=== PATIENT | male | born 1995 | race Caucasian/White ===

== ENCOUNTER 2016-10-28 13:45 | Outpatient (CLI) ==
[2016-01-07 07:58] VITALS: BMI 58.3
[2016-10-28 14:13] LABS: BASOPHILS # (AUTO) 0.1 K/uL (0-0.2); BASOPHILS % (AUTO) 0.4 % (0.0-3.0); EOSINOPHILS # (AUTO) 0.3 K/ul (0.0-0.7); EOSINOPHILS % (AUTO) 2.3 % (0.0-7.0); HEMATOCRIT 44.9 % (42.0-52.0); HEMOGLOBIN 14.5 g/dl (14.0-18.0); IMMATURE GRANULOCYTE % (AUTO) 0.3 % (0.0-5.0); LYMPHOCYTES % (AUTO) 32.5 (10.0-50.0); MEAN CORPUSCULAR HEMOGLOBIN 27.7 pg (27.0-31.0); MEAN CORPUSCULAR HGB CONC 32.3 (31.8-35.4); MEAN CORPUSCULAR VOLUME 85.7 fl (80.0-94.0); MONOCYTES # (AUTO) 0.7 K/uL (0.4-2.0); MONOCYTES % (AUTO) 5.4 (0-10); NEUTROPHILS # (AUTO) 7.2 K/ul (2.0-6.9); NEUTROPHILS % (AUTO) 59.1; PLATELET COUNT 330 10^3/uL (140-440); RED BLOOD COUNT 5.24 10^6/ul (4.70-6.10); WHITE BLOOD COUNT 12.17 K/ul (4.2-10.2)
[2016-10-28 15:27] LABS: ALBUMIN 3.5 g/dL (3.4-5.0); ALBUMIN/GLOBULIN RATIO 0.85; BILIRUBIN,TOTAL 0.49 mg/dL (0.00-1.20); BUN/CREATININE RATIO 20.45; CREATININE 0.88 mg/dL (0.60-1.10); TOTAL PROTEIN 7.6 g/dL (6.4-8.2)
== END 2016-10-28 13:46 | disposition home or self-care (01) ==
LOC: EDSEX → LAB 13:45
PROVIDERS: ATTEND Nurse Practitioner Family
DX: M54.10 Radiculopathy, site unspecified (principal); E66.01 Morbid (severe) obesity due to excess calories
CPT/HCPCS: 36415; 80053; 80061; 84443; 85025

== ENCOUNTER 2016-10-29 09:11 | Outpatient (CLI) ==
[2016-01-07 07:58] VITALS: BMI 58.3
[2016-10-29 09:58] LABS: BILIRUBIN,URINE Negative (NEGATIVE); KETONES,URINE Negative (NEGATIVE); LEUKOCYTE ESTERASE ,URINE Trace (NEGATIVE); NITRITE,URINE Negative (NEGATIVE); PROTEIN,URINE Negative (NEGATIVE); URINE, BLOOD 1+ (NEGATIVE)
[2016-10-29 10:04] LABS: ADD URINE MICROSCOPIC YES
[2016-10-29 10:09] LABS: BACTERIA,URINE 1+ (NOT PRESENT)
--- NOTE | 2016-10-29 10:10 | CT ---
EXAM: CT lumbar spine with contrast HISTORY: Radiculopathy. COMPARISON: None TECHNIQUE: Serial axial images of the lumbar spine were obtained after the administration 75 ml of Omnipaque 350 IV contrast. These were viewed in multiple planes. Evaluation is limited due to patie nt motion. FINDINGS: This evaluate is limited due to patient motion. The vertebral bodies demonstrate normal h eight, disc space and alignment. No lytic or blastic lesion is identified. No compression fracture or subluxation is identified. L1-L2: Normal L2-L3: Normal L3-L4: Small broad-based disc bulge with minimal right neural foraminal narrowing. L4-L5: Small disc bulge with minimal bilateral neural foraminal narrowing. L5-S1: Disc bulge with minimal osteophyte with mild to moderate right neural foraminal narrowing. The soft tissues are unremarkable. IMPRESSION: 1. No acute compression fracture or subluxation. 2. Disc bulge contributes to mild to moderate right neural foraminal narrowing noted at L5-S1. Oth er levels as described above. If further evaluation is clinically indicated, MRI may be obtained.
== END 2016-10-29 09:12 | disposition home or self-care (01) ==
LOC: EDSEX 09:11 → RAD 09:11
PROVIDERS: ATTEND Nurse Practitioner Family
DX: M54.10 Radiculopathy, site unspecified (principal); Z91.81 History of falling; D72.829 Elevated white blood cell count, unspecified
CPT/HCPCS: 81001; 87086

== ENCOUNTER 2016-11-17 16:47 | Emergency (ER) ==
[2016-11-17 17:02] VITALS: BP 138/96; BMI 72.8
--- NOTE | 2016-11-17 17:24 | ED.PDOC ---
General ED Provider: Dr. SHANAE HANCOCK JR Chief Complaint: Chest Pain Stated Complaint: seeing clinic back pain approx 8 weeks.same time chest pain aching left side of chest.no radiation, short of breath on occassion. at clinic pulse 140 120 resting pain short duration whole body was hurting[End] sore throat yesterday nasal congestion [id number] 123 20 98% 138/96 4/10; staes heat rate has been elevated past four times she has been in highest today UTI 2 weeks ago Time Seen by Physician: 17:25 Mode of Arrival: Walk-In Information Source: Patient Exam Limitations: No limitations Primary Care Provider: DWIGHT NOVOA Nursing and Triage Documentation Reviewed and Agree: No Review of Systems - Review Of Systems Constitutional: Reports: Fever, Malaise Eyes: Reports: No symptoms Ears, Nose, Mouth, Throat: Reports: No symptoms Respiratory: Reports: No symptoms Cardiac: Reports: Chest pain GI: Reports: No symptoms : Reports: No symptoms Musculoskeletal: Reports: No symptoms Skin: Reports: No symptoms Neurological: Reports: No symptoms Endocrine: Reports: Other (increased hirsuitism) Hematologic/Lymphatic: Reports: No symptoms All Other Systems: Other Past Medical History - Past Medical History Previously Healthy: No Endocrine: Reports: None Cardiovascular: Reports: None Respiratory: Reports: None Hematological: Reports: None Gastrointestinal: Reports: None Genitourinary: Reports: UTI Neuro/Psych: Reports: None Musculoskeletal: Reports: Other (3 bulging disks) Cancer: Reports: None Last Menstrual Period: 08/13 Other Pertinent Past Medical History: obesity - Surgical History General Surgical History: Reports: Tonsillectomy, Orthopedic (plates and screws right forearm and wrist post fall ) - Family History Family History: Reports: Diabetes (both parents) - Social History Smoking Status: Never smoker Hx Substance Use: No Alcohol Screening: None Physical Exam - Physical Exam Appearance: Ill-appearing, Obese Ill-appearing: Mild Pain Distress: Mild Eyes: NATHANIEL, EOMI, Conjunctiva clear ENT: Ears normal, Nose normal, Oropharynx normal Neck: Supple Respiratory: Airway patent Cardiovascular: RRR, Pulses normal, No rub, No murmur, Tachycardia GI/: Soft, Nontender, No masses, Bowel sounds normal, No Organomegaly Musculoskeletal: Normal strength, ROM intact, No edema, No calf tenderness Skin: Warm, Dry, Normal color Neurological: Sensation intact, Motor intact, Reflexes intact, Cranial nerves intact, Alert, Oriented Psychiatric: Affect appropriate, Mood appropriate, Anxious Interpretation - Radiology Interpretation Radiology Interpretation By: ED Physician Radiology Results: Negative Exam Interpreted: CXR - EKG Interpretation Time of EKG #1: 17:30 Rate: Tachy Rhythm: Sinus Ectopy: None Hallam: NL ST Segment: Normal Critical Care Note - Critical Care Note Total Time (mins): 0 Course - Course Hematology/Chemistry: 11/17/16 17:28 11/17/16 17:28 Orders, Labs, Meds: Lab Review 11/17/16 11/17/16 17:18 17:28 WBC 8.87 RBC 5.00 Hgb 13.9 Hct 42.1 MCV 84.2 MCH 27.8 MCHC 33.0 RDW Coeff of Castillo 13.2 Plt Count 355 Immature Gran % (Auto) 0.6 Neut % (Auto) 65.5 Lymph % (Auto) 25.8 Anson % (Auto) 6.0 Eos % (Auto) 1.8 Baso % (Auto) 0.3 Immature Gran # (Auto) 0.1 Neut # 5.8 Lymph # 2.3 Anson # 0.5 Eos # 0.2 Baso # 0.0 D-Dimer 0.50 Sodium 143 Potassium 4.1 Chloride 109 H Carbon Dioxide 24 Anion Gap 14.1 BUN 14 Creatinine 0.88 Estimated GFR (MDRD) 82.00 BUN/Creatinine Ratio 15.90 Glucose 103 Calcium 9.5 Total Bilirubin 0.23 AST 22 ALT 39 Alkaline Phosphatase 59 Total Creatine Kinase 43 Troponin I < 0.0100 B-Natriuretic Peptide < 10 Total Protein 7.8 Albumin 3.7 Globulin 4.1 Albumin/Globulin Ratio 0.90 Procalcitonin < 0.05 Urine Color Yellow Urine Clarity Turbid Urine pH 5.5 Ur Specific Branch 1.025 Urine Protein 1+ Urine Glucose (UA) Negative Urine Ketones Negative Urine Blood 3+ Urine Nitrite Negative Urine Bilirubin Negative Urine Urobilinogen 0.2 Ur Leukocyte Esterase Negative Urine Microscopic RBC 10-20 Ur Squamous Epith Cells 5-10 Urine Bacteria 1+ Urine Mucus 2+ Influenza A (Rapid) Negative Influenza B (Rapid) Negative Orders Category Date Time Status EKG-(ED ONLY) Stat CARDIO 11/17/16 17:10 Completed ED NETWORK COMMUNICATIONS ENGINEER APPLIED .ONCE EMERGENCY 11/17/16 17:10 Active B-TYPE NATRIURETIC PEPTIDE Stat LAB 11/17/16 17:28 Completed BLOOD CULTURE Stat LAB 11/17/16 17:28 Received CBC W/ AUTO DIFF Stat LAB 11/17/16 17:28 Completed COMPREHENSIVE METABOLIC PANEL Stat LAB 11/17/16 17:28 Completed CREATINE KINASE Stat LAB 11/17/16 17:28 Completed D-DIMER Stat LAB 11/17/16 17:28 Completed MOLECULAR GROUP A STREP Stat LAB 11/17/16 17:18 Results PROCALCITONIN Stat LAB 11/17/16 17:28 Completed RAPID FLU A/B Stat LAB 11/17/16 17:18 Completed STREP SCREEN Stat LAB 11/17/16 17:18 Results TROPONIN I Stat LAB 11/17/16 17:28 Completed UA [URINALYSIS C & S IF INDICATED] Stat LAB 11/17/16 17:18 Completed URINE CULTURE Routine LAB 11/17/16 17:18 Received Acetaminophen [Tylenol] MEDS 11/17/16 17:28 Discontinued 650 mg PO ONCE STA CHEST, 2 VIEWS PA & LAT Stat RADS 11/17/16 17:12 Taken Medications Discontinued Medications Generic Name Dose Route Start Last Admin Trade Name Freq PRN Reason Stop Dose Admin Acetaminophen 650 mg 11/17/16 17:28 11/17/16 17:42 Tylenol PO 11/17/16 17:29 650 mg ONCE STA Administration Vital Signs: Temp Pulse Resp BP Pulse Ox 11/17/16 16:48 100.5 F H 123 H 20 138/96 H 98 KHADIJAH Risk Score KHADIJAH Risk Score: Risk Score Odds of by 30D 0 0.1 (0.1-0.2) 1 0.3 (0.2-0.3) 2 0.4 (0.3-0.5) 3 0.7 (0.6-0.9) 4 1.2 (1.0-1.5) 5 2.2 (1.9-2.6) 6 3.0 (2.5-3.6) 7 4.8 (3.8-6.1) Departure - Departure Time of Disposition: 18:16 Disposition: HOME SELF-CARE Discharge Problem: Tachycardia determined by examination of pulse UTI (urinary tract infection) Qualifiers: Urinary tract infection type: site unspecified Hematuria presence: with hematuria Qualifier Code: (N39.0) Urinary tract infection, site not specified Instructions: Urinary Tract Infection in Women (ED) Condition: Fair Pt referred to PMD for follow-up: Yes Additional Instructions: antibiotics until gone bactrim DS for 7 days recheck heart rate after 2 days of antibiotics may call PMD after 36 hours for culture results no evidence of cardiac cause for tachycardia tachycardia that does not resolve with control of fever may be ralated to hormones consider obtaining urinary metanephrines Hirsuitism may be related to hormone imbalances such as polycystic ovaries consider glucophage if polycystic ovaries are present antibiotic for urine infection Prescriptions: Sulfamethoxazole/Trimethoprim [Bactrim Ds 800/160 mg] 1 tab PO Q12HR #14 tablet Allergies/Adverse Reactions: Allergies No Known Allergies Allergy (Verified 11/17/16 17:02) Home Medications: Ambulatory Orders Sulfamethoxazole/Trimethoprim [Bactrim Ds 800/160 mg] 1 tab PO Q12HR #14 tablet 11/17/16
[2016-11-17] MEDS ORDERED: TYLENOL PO STA (17:28)
[2016-11-17 17:36] LABS: BASOPHILS % (AUTO) 0.3 % (0.0-3.0); EOSINOPHILS # (AUTO) 0.2 K/ul (0.0-0.7); EOSINOPHILS % (AUTO) 1.8 % (0.0-7.0); HEMATOCRIT 42.1 % (37.0-47.0); HEMOGLOBIN 13.9 g/dl (12.0-16.0); IMMATURE GRANULOCYTE % (AUTO) 0.6 % (0.0-5.0); LYMPHOCYTES # (AUTO) 2.3 K/uL (0.60-3.4); LYMPHOCYTES % (AUTO) 25.8 (10.0-50.0); MEAN CORPUSCULAR HEMOGLOBIN 27.8 pg (27.0-31.0); MEAN CORPUSCULAR VOLUME 84.2 fl (81.0-99.0); MONOCYTES # (AUTO) 0.5 K/uL (0.4-2.0); NEUTROPHILS # (AUTO) 5.8 K/ul (2.0-6.9); NEUTROPHILS % (AUTO) 65.5; PLATELET COUNT 355 10^3/uL (140-440); WHITE BLOOD COUNT 8.87 K/ul (4.6-10.2)
[2016-11-17 17:49] LABS: BILIRUBIN,URINE Negative (NEGATIVE); KETONES,URINE Negative (NEGATIVE); LEUKOCYTE ESTERASE ,URINE Negative (NEGATIVE); NITRITE,URINE Negative (NEGATIVE); PH,URINE 5.5 (5-9); PROTEIN,URINE 1+ (NEGATIVE); URINE, BLOOD 3+ (NEGATIVE)
[2016-11-17 17:51] LABS: FLU INTERNAL QC INTERNAL QC VALID; RAPID FLU A NEGATIVE (NEGATIVE); RAPID FLU B NEGATIVE (NEGATIVE)
[2016-11-17 17:53] LABS: ADD URINE MICROSCOPIC YES
[2016-11-17 17:54] LABS: BACTERIA,URINE 1+ (NOT PRESENT)
[2016-11-17 18:03] LABS: ALANINE AMINOTRANSFERASE 39 U/L (12-78); ALBUMIN 3.7 g/dL (3.4-5.0); ALKALINE PHOSPHATASE 59 U/L (42-98); ANION GAP 14.1; ASPARTATE AMINO TRANSFERASE 22 U/L (15-37); BILIRUBIN,TOTAL 0.23 mg/dL (0.00-1.20); BLOOD UREA NITROGEN 14 mg/dL (7-18); CALCIUM 9.5 mg/dL (8.2-10.2); CARBON DIOXIDE 24 mmol/L (21-32); CHLORIDE 109 mmol/L (98-107); CREATINE KINASE 43 U/L; CREATININE 0.88 mg/dL (0.60-1.30); GLUCOSE 103 mg/dL (70-110); POTASSIUM 4.1 mmol/L (3.5-5.10); SODIUM 143 mmol/L (136-145); TOTAL PROTEIN 7.8 g/dL (6.4-8.2)
[2016-11-17 18:42] VITALS: TEMP 100.8
[2016-11-17] MEDS ORDERED: BACTRIM DS 800/160 MG PO STA (18:56)
--- NOTE | 2016-11-18 07:19 | DI ---
EXAM: Two views of the chest. History: Fever. Findings: Borderline cardiomegaly. No focal consolidation. No appreciable pleural fluid and no pn eumothorax. No acute osseous abnormalities. Impression: No acute cardiopulmonary process. Borderline cardiomegaly.
== END 2016-11-17 19:05 | disposition home or self-care (01) ==
LOC: ED 16:47
DX: R00.0 Tachycardia, unspecified (principal); N39.0 Urinary tract infection, site not specified; R07.9 Chest pain, unspecified; L68.0 Hirsutism
CPT/HCPCS: 36415; 80053; 81001; 82550; 83880; 84145; 84484; 85025; 85379; 87040; 87086; 87651; 87804; 87880; 93005; 93010; 99283

== ENCOUNTER 2016-11-18 16:22 | Outpatient (CLI) ==
[2016-11-17 17:02] VITALS: BMI 72.8
== END 2016-11-18 16:23 | disposition home or self-care (01) ==
LOC: LAB 16:22
PROVIDERS: ATTEND Nurse Practitioner Family
DX: I51.7 Cardiomegaly (principal); R00.0 Tachycardia, unspecified
CPT/HCPCS: 36415; 83880

== ENCOUNTER 2016-11-24 16:00 | Outpatient (CLI) | END 2016-11-24 16:01 | disposition home or self-care (01) | LOC: CAR 16:00 | PROVIDERS: ATTEND Internal Medicine | DX: I51.7 Cardiomegaly (principal); I10 Essential (primary) hypertension; R00.0 Tachycardia, unspecified; E78.5 Hyperlipidemia, unspecified | CPT/HCPCS: 93005; 93010 ==

== ENCOUNTER 2016-11-26 06:32 | Outpatient (CLI) ==
[2016-11-26 07:47] LABS: CHOL/HDL RATIO 4.8 (4.5-5.5)
--- NOTE | 2016-11-26 08:45 | ECHO2D ---
Date of Exam: 11/26/16 Ordering Physician: LINETTE VILLEGAS Reason for Echo: CARDIOMEGALY, HTN, SINUS TACH, BMI GREATER THAN 40 M-Mode Normal Adult Results LV Dimensions Normal Adult Results AoV Opening excursions >1.6 >1.6 LVEDD-base- 3.5-5.8 4.9 Ao root dimensions 2.0-3.7 3.6 LVESD-base- 3.1-4.6 L. Atrium dimensions 1.9-3.8 4.6 Post. Wall thickness 0.8-1.1 1.4 IV septum (thickness) 0.7-1.2 1.4 Post. Wall excursion 0.72-1.3 NORMAL Septal motion NORMAL Systolic motion R. Ventricular cavity 1.5-2.0 NORMAL LVEF 60% 64% Paradoxical septal wall motion NORMAL 2-D : ENLARGED LEFT ATRIAL CAVITY/NORMAL VALVES/ NORMAL LEFT VENTRICULAR CONTRACTILITY--NORMAL LEFT VENTRICLE SIZE, NO EFFUSION, NO THROMBUS M-MODE: MV: NORMAL AV: NORMAL TV: NORMAL PV: CHAMBER SIZE: ENLARGED LEFT ATRIAL CAVITY WALL MOTION: NORMAL PERICARDIUM: NORMAL INTERPRETATION: 1. LEFT VENTRICULAR HYPERTROPHY WITH ENLARGED LEFT ATRIAL CAVITY 2. NORMAL VALVES 3. NORMAL LEFT VENTRICULAR CONTRACTILITY MTDD
== END 2016-11-26 06:33 | disposition home or self-care (01) ==
LOC: CAR 06:32
PROVIDERS: ATTEND Internal Medicine
DX: I51.7 Cardiomegaly (principal); I10 Essential (primary) hypertension; E78.5 Hyperlipidemia, unspecified; R00.0 Tachycardia, unspecified
CPT/HCPCS: 36415; 80061; 84439; 84443

== ENCOUNTER 2016-12-21 13:13 | Outpatient (CLI) | END 2016-12-21 13:14 | disposition home or self-care (01) | LOC: CAR 13:13 | PROVIDERS: ATTEND Internal Medicine | DX: R06.02 Shortness of breath (principal); E66.9 Obesity, unspecified ==

== ENCOUNTER 2017-03-28 16:09 | Outpatient (CLI) ==
[2017-03-28 18:01] LABS: BASOPHILS % (AUTO) 0.5 % (0.0-3.0); BILIRUBIN,URINE Negative (NEGATIVE); EOSINOPHILS # (AUTO) 0.2 K/ul (0.0-0.7); EOSINOPHILS % (AUTO) 2.1 % (0.0-7.0); HEMATOCRIT 40.9 % (37.0-47.0); HEMOGLOBIN 13.4 g/dl (12.0-16.0); IMMATURE GRANULOCYTE % (AUTO) 0.7 % (0.0-5.0); KETONES,URINE Negative (NEGATIVE); LEUKOCYTE ESTERASE ,URINE 1+ (NEGATIVE); LYMPHOCYTES % (AUTO) 26.1 (10.0-50.0); MEAN CORPUSCULAR HEMOGLOBIN 28.2 pg (27.0-31.0); MEAN CORPUSCULAR HGB CONC 32.8 (31.8-35.4); MEAN CORPUSCULAR VOLUME 86.1 fl (81.0-99.0); MONOCYTES # (AUTO) 0.4 K/uL (0.4-2.0); MONOCYTES % (AUTO) 5.6 (0-10); NEUTROPHILS # (AUTO) 4.9 K/ul (2.0-6.9); NITRITE,URINE Negative (NEGATIVE); PH,URINE 5.5 (5-9); PLATELET COUNT 265 10^3/uL (140-440); PROTEIN,URINE Negative (NEGATIVE); RED BLOOD COUNT 4.75 10^6/ul (4.20-5.40); URINE, BLOOD Trace-lysed (NEGATIVE); WHITE BLOOD COUNT 7.47 K/ul (4.6-10.2)
[2017-03-28 18:16] LABS: ADD URINE MICROSCOPIC YES
[2017-03-28 18:21] LABS: BACTERIA,URINE 2+ (NOT PRESENT)
[2017-03-28 18:42] LABS: ALBUMIN 3.6 g/dL (3.4-5.0); ALBUMIN/GLOBULIN RATIO 0.95; ANION GAP 16.4; BILIRUBIN,TOTAL 0.31 mg/dL (0.00-1.20); BUN/CREATININE RATIO 13.95; CALCIUM 9.8 mg/dL (8.2-10.2); CHOL/HDL RATIO 4.9 (4.5-5.5); CREATININE 0.86 mg/dL (0.60-1.30); POTASSIUM 4.4 mmol/L (3.5-5.10); TOTAL PROTEIN 7.4 g/dL (6.4-8.2)
== END 2017-03-28 16:10 | disposition home or self-care (01) ==
LOC: LAB 16:09
PROVIDERS: ATTEND Nurse Practitioner Family
DX: E75.6 Lipid storage disorder, unspecified (principal); E66.01 Morbid (severe) obesity due to excess calories
CPT/HCPCS: 36415; 80053; 80061; 81001; 84443; 85025; 87086

== ENCOUNTER 2017-08-16 13:06 | Outpatient (CLI) ==
[2017-08-16 14:13] LABS: ALBUMIN 3.5 g/dL (3.4-5.0); ALBUMIN/GLOBULIN RATIO 0.81; ANION GAP 14.3; BILIRUBIN,TOTAL 0.4 mg/dL (0.00-1.20); BUN/CREATININE RATIO 22.89; CHOL/HDL RATIO 5.7 (4.5-5.5); CREATININE 0.83 mg/dL (0.60-1.30); POTASSIUM 4.3 mmol/L (3.5-5.10); TOTAL PROTEIN 7.8 g/dL (6.4-8.2)
[2017-08-16 15:09] LABS: BASOPHILS # (AUTO) 0.1 K/uL (0-0.2); BASOPHILS % (AUTO) 0.6 % (0.0-3.0); EOSINOPHILS # (AUTO) 0.2 K/ul (0.0-0.7); EOSINOPHILS % (AUTO) 1.9 % (0.0-7.0); HEMATOCRIT 40.9 % (37.0-47.0); HEMOGLOBIN 13.6 g/dl (12.0-16.0); IMMATURE GRANULOCYTE % (AUTO) 1.1 % (0.0-5.0); LYMPHOCYTES # (AUTO) 2.5 K/uL (0.60-3.4); LYMPHOCYTES % (AUTO) 29.2 (10.0-50.0); MEAN CORPUSCULAR HEMOGLOBIN 27.7 pg (27.0-31.0); MEAN CORPUSCULAR HGB CONC 33.3 (31.8-35.4); MEAN CORPUSCULAR VOLUME 83.3 fl (81.0-99.0); MONOCYTES # (AUTO) 0.5 K/uL (0.4-2.0); MONOCYTES % (AUTO) 5.7 (0-10); NEUTROPHILS # (AUTO) 5.3 K/ul (2.0-6.9); NEUTROPHILS % (AUTO) 61.5; PLATELET COUNT 301 10^3/uL (140-440); RED BLOOD COUNT 4.91 10^6/ul (4.20-5.40); WHITE BLOOD COUNT 8.53 K/ul (4.6-10.2)
--- NOTE | 2017-08-16 17:18 | MRI ---
EXAM: Brain MRI without contrast. HISTORY: Vision changes. COMPARISON: None. TECHNIQUE: Multiplanar, multisequence MR images were acquired of the brain without contrast. FINDINGS: There is no midline shift. The ventricles, sulci and cisterns are normal. There are no a bnormal extra-axial fluid collections. The brain parenchyma has no restricted diffusion to suggest acute hypoperfusion or infarction. There are no abnormal T2 hyperintensities or foci of dark gradient echo signal. The corpus callosum has a normal configuration. The pituitary gland is unremarkable. There is a small thin-walled 3.5 mm x 4 .8 mm pineal cyst. There are no intraorbital masses. There is no tortuosity or increased fluid in the optic nerve sheat h. However, there is slight flattening of the posterior globes at the optic nerve insertions which i s nonspecific. If significant symptoms are present suggestive of idiopathic intracranial hypertensio n, neurology consultation or measurement of CSF pressure may be considered. Minor leftward nasal sep sergio deviation and a small left nasal septal spur are present. There is under pneumatization of the l eft mastoid air cells compatible with sequela of prior chronic left mastoiditis. The right mastoid a ir cells are unremarkable. There is mild adenoidal hypertrophy and a small left nasopharyngeal submuc osal cyst. Flow voids are present in the major intracranial arteries and dural venous sinuses. IMPRESSION: No intracranial mass, hemorrhage or acute cerebral infarct.
== END 2017-08-16 13:07 | disposition home or self-care (01) ==
LOC: RAD 13:06
PROVIDERS: ATTEND Nurse Practitioner Family
DX: H53.9 Unspecified visual disturbance (principal); E66.01 Morbid (severe) obesity due to excess calories; F32.9 Major depressive disorder, single episode, unspecified
CPT/HCPCS: 36415; 80053; 80061; 84146; 84439; 84443; 85025

== ENCOUNTER 2017-09-12 08:51 | Outpatient (CLI) | END 2017-09-12 08:52 | disposition home or self-care (01) | LOC: LAB 08:51 | PROVIDERS: ATTEND Internal Medicine Endocrinology, Diabetes & Metabolism | DX: E78.5 Hyperlipidemia, unspecified (principal); R53.83 Other fatigue; G47.30 Sleep apnea, unspecified; E66.01 Morbid (severe) obesity due to excess calories | CPT/HCPCS: 36415; 82533; 83001; 83002; 83036; 84146; 84305 ==

== ENCOUNTER 2017-10-11 19:48 | Emergency (ER) ==
[2017-10-11 20:00] VITALS: BP 144/77; TEMP 101.5; BMI 70.9
--- NOTE | 2017-10-11 20:35 | ED.PDOC ---
General ED Provider: Dr. EDGAR VELASQUEZ-ER Chief Complaint: Respiratory Complaint Stated Complaint: jonn had cough, fevr and sore throat Time Seen by Physician: 19:50 Mode of Arrival: Walk-In Information Source: Patient Exam Limitations: No limitations Primary Care Provider: DWIGHT NOVOA Nursing and Triage Documentation Reviewed and Agree: Yes Reviewed sepsis parameters & appropriate labs ordered?: Yes System Inflammatory Response Syndrome: Not Applicable Sepsis Protocol: For patient's 13 years and over: Temp is 96.8 and below OR 101 and greater Pulse >90 BPM Resp >20/minute Acutely Altered Mental Status Are patient's symptoms suggestive of a new infection, such as: -Pneumonia -Skin, Soft Tissue -Endocarditis -UTI -Bone, Joint Infection -Implantable Device -Acute Abdominal Infection -Wound Infection -Meningitis -Blood Stream Catheter Infection -Unknown EENT Complaint Exam - Throat Complaint/Exam Onset/Duration: 2 dys Symptoms Are: Still present Initial Severity: Mild Current Severity: None Aggravating: Reports: None Alleviating: Reports: None Associated Signs and Symptoms: Reports: Fever, Chills, Cough, Nasal congestion. Denies: Dysphagia, Drooling, Foreign body sensation, Wheezing, Hoarseness, Sinus discomfort Uvula Midline: Yes Rocío-tonsillar Fluctuence: No Scarlatinaform Rash Present: No Stridor Present: No Sinus Tenderness Present: No Tonsillar Hypertrophy Present: No Tonsillar Exudate Present: No Rocío-tonsillar Swelling Present: No Adenopathy Present: No Splenomegaly Present: No Differential Diagnoses: Influenza Review of Systems - Review Of Systems Constitutional: Reports: No symptoms Eyes: Reports: No symptoms Ears, Nose, Mouth, Throat: Reports: No symptoms, Throat pain Respiratory: Reports: Cough Cardiac: Reports: No symptoms GI: Reports: No symptoms : Reports: No symptoms Musculoskeletal: Reports: No symptoms Skin: Reports: No symptoms Neurological: Reports: No symptoms Endocrine: Reports: No symptoms Hematologic/Lymphatic: Reports: No symptoms All Other Systems: Reviewed and Negative Past Medical History - Past Medical History Previously Healthy: No Endocrine: Reports: None Cardiovascular: Reports: None Respiratory: Reports: None Hematological: Reports: None Gastrointestinal: Reports: None Genitourinary: Reports: UTI Neuro/Psych: Reports: None Musculoskeletal: Reports: Other (3 bulging disks) Cancer: Reports: None Last Menstrual Period: July Other Pertinent Past Medical History: obesity - Surgical History General Surgical History: Reports: Tonsillectomy, Orthopedic (plates and screws right forearm and wrist post fall ) - Family History Family History: Reports: Diabetes (both parents) - Social History Smoking Status: Never smoker Hx Substance Use: No Alcohol Screening: None Physical Exam - Physical Exam Appearance: Well-appearing, No pain distress, Well-nourished Eyes: NATHANIEL, EOMI, Conjunctiva clear ENT: Rhinorrhea, Erythema Neck: Supple Respiratory: Airway patent, Breath sounds clear, Breath sounds equal, Respirations nonlabored Cardiovascular: RRR, Pulses normal, No rub, No murmur GI/: Soft, Nontender, No masses, Bowel sounds normal, No Organomegaly Musculoskeletal: Normal strength, ROM intact, No edema, No calf tenderness Skin: Warm, Dry, Normal color Neurological: Sensation intact, Motor intact, Reflexes intact, Cranial nerves intact, Alert, Oriented Psychiatric: Affect appropriate, Mood appropriate Critical Care Note - Critical Care Note Total Time (mins): 0 Course - Course Orders, Labs, Meds: Lab Review 10/11/17 20:00 Influenza A (Rapid) Negative by naat Influenza B (Rapid) Positive by naat H Orders Category Date Time Status FLU A/B MOLECULAR Stat LAB 10/11/17 20:00 Completed MOLECULAR GROUP A STREP Stat LAB 10/11/17 20:00 Completed Vital Signs: Temp Pulse Resp BP Pulse Ox 10/11/17 19:49 101.5 F H 116 H 22 144/77 H 96 Departure - Departure Time of Disposition: 20:34 Disposition: HOME SELF-CARE Discharge Problem: Influenza Instructions: Influenza (ED) Condition: Good Pt referred to PMD for follow-up: No IPMP verified?: No Additional Instructions: tamiflu 75mg bid x 5 days--tylenol for temp--warm salt water gargles--recheck in 72hrs if not better Allergies/Adverse Reactions: Allergies No Known Allergies Allergy (Verified 10/11/17 19:58) Home Medications: Ambulatory Orders Multivitamin [Multi-Vitamin Daily] 1 each PO DAILY 07/27/17 Disposition Discussed With: Patient
== END 2017-10-11 20:42 | disposition home or self-care (01) ==
LOC: ED 19:48
DX: J10.1 Influenza due to other identified influenza virus with other respiratory manifestations (principal)
CPT/HCPCS: 87502; 87651; 99283

== ENCOUNTER 2018-01-30 13:46 | Outpatient (CLI) | END 2018-01-30 13:47 | disposition home or self-care (01) | LOC: FCC-LAB 13:46 | PROVIDERS: ATTEND Nurse Practitioner Family | DX: E78.5 Hyperlipidemia, unspecified (principal); Z98.84 Bariatric surgery status | CPT/HCPCS: 36415; 80053; 80061; 81001; 85025; 87086 ==

== ENCOUNTER 2018-02-02 09:15 | Outpatient (CLI) ==
--- NOTE | 2018-02-02 10:59 | US ---
EXAM: Ultrasound abdomen limited. HISTORY: Elevated liver enzymes. Abdominal pain. COMPARISON: None available. TECHNIQUE: Abdominal, real time with image documentation: limited (eg, single organ, quadrant, foll ow-up) FINDINGS: The liver demonstrates increased parenchymal echogenicity. There is no intrahepatic bilia ry dilatation. Portal venous flow is normal in direction. The gallbladder is without shadowing ston es, wall thickening or pericholecystic fluid. Common duct measures approximately 0.4 cm. Visualized portions of the pancreas are unremarkable. IMPRESSION: Fatty infiltration of the liver.
== END 2018-02-02 09:16 | disposition home or self-care (01) ==
LOC: RAD 09:15
PROVIDERS: ATTEND Nurse Practitioner Family
DX: R10.84 Generalized abdominal pain (principal); R74.8 Abnormal levels of other serum enzymes; Z98.84 Bariatric surgery status
CPT/HCPCS: 36415; 80074; 80076; 82150; 83690

== ENCOUNTER 2018-02-10 10:55 | Outpatient (CLI) | END 2018-02-10 10:56 | disposition home or self-care (01) | LOC: FCC-LAB 10:55 | PROVIDERS: ATTEND Nurse Practitioner Family | DX: R74.8 Abnormal levels of other serum enzymes (principal); E66.01 Morbid (severe) obesity due to excess calories | CPT/HCPCS: 36415; 80076 ==

== ENCOUNTER 2018-03-31 15:57 | Outpatient (CLI) | END 2018-03-31 15:58 | disposition home or self-care (01) | LOC: FCC-LAB 15:57 | PROVIDERS: ATTEND Family Medicine | DX: R53.81 Other malaise (principal); Z68.44 Body mass index [BMI] 60.0-69.9, adult; Z98.84 Bariatric surgery status; N91.2 Amenorrhea, unspecified | CPT/HCPCS: 36415; 82306; 82607; 82670; 83001; 84146; 84403; 84439; 84443 ==

== ENCOUNTER 2018-05-09 10:06 | Outpatient (CLI) ==
--- NOTE | 2018-05-09 12:58 | DI ---
EXAM: Three views of the left ankle HISTORY: Left ankle sprain. COMPARISON: Left ankle x-rays 01/08/2020 and FINDINGS: There is a small displaced fracture at the tip of the fibula with soft tissue swelling. Th e joint space is maintained. The tibia is unchanged. Arch is maintained. There is no lytic or blast ic lesion. IMPRESSION: 1. Minimally displaced fracture of the tip of the fibula. 2. Soft tissue swelling of the left ankle.
== END 2018-05-09 10:07 | disposition home or self-care (01) ==
LOC: RAD 10:06
PROVIDERS: ATTEND Family Medicine
DX: S93.402A Sprain of unspecified ligament of left ankle, initial encounter (principal)

== ENCOUNTER 2018-06-27 11:00 | Outpatient (RCR) ==
--- NOTE | 2018-06-05 15:34 | RS.OPPTEV2 ---
Date of Note: 06/02/18 Visit #: 1 Date of Evaluation: 06/02/18 Payer Source: Medicaid Surgery Performed?: No Treatment Diagnosis: sprain L ankle, L ankle tendonitis, History of Condition/Mechanism of Injury:: pt sprained L ankle x 3 in a row. She states the last time she sprained it was 04/29/18. She saw Dr. Bah and [facility]. Prior Level of Function.....Patient was independent with: ADL's, Self Care, Work /Vocation, Caregiving, Ambulation/Mobility, Community Integration/Access Functional Limitations: Sitting, Squatting Current Subjective/complaints:: pt states she twisted her ankle at home x 3. She states her ankle hurts more when sitting with foot flat on the floor. States not much pain with amb. Treatment Side (optional): Left *Precautions: n/a Medical History Medical History: Unremarkable Surgical History Comments:: RUE surgery Smoking Status: Former smoker Diagnostic Testing/Imaging:: L ankle XRAY: minimally displaced fx of the tip of the fibula Patient's Goals: Decrease pain and swelling in L ankle Pain Assessment - Pain Description Pain Location: L lat ankle Pain Description: Aching Current Pain Intensity: 1/10 at rest Functional Outcome Measure LE Functional Scale: 68 (15%) - G Codes & Severity Modifier G Codes & Modifier: n/a Source of G Code score: n/a Observation - Observation Inspection: pt with edema L ankle at lat malleolus. R ankle 28cm, L ankle 30 cm Posture: Forward Head, Rounded Shoulders, Increased Thoracic Kyphosis, Decreased Lumbar Lordosis Handedness: Right Gait - Gait Pattern General Gait Pattern Observation: Antalgic Gait, Short Stance Time (L) General Range of Motion: BUE WFL's. RLE WFL's. LLE hip and knee WFL's, Muscle Strength: BUE 5/5. RLE 5/5. LLE hip and knee 5/5 Ankle ROM: Right WFL's Ankle Muscle Strength: Right WFL's - Left Ankle ROM Left DF with Knee extension: 9 Left Plantar Flexion: 18 Left Eversion: 15 Left Inversion: 20 Left Ankle/Foot ROM Limitations: Soft Tissue Tightness, Muscle Weakness, Pain Palpation Palpation Findings: Tenderness Comments:: tenderness noted over anterior talofibular ligament as well as lat malleolus Sensation - Sensation Right Upper Extremity: Intact/Normal Left Upper Extremity: Intact/Normal Right Lower Extremity: Intact/Normal Left Lower Extremity: Intact/Normal Balance - Sitting Balance Static Sitting Balance: Normal Dynamic Sitting Balance: Normal - Standing Balance Static Standing Balance: Normal Dynamic Standing Balance: Normal - Treatment Modality: Ultrasound Parameters/Method Applied: pulsed 1.5w/cm2 x 7 mins Treatment Area: L lat ankle Patient Position: Sitting - Heat/Cryotherapy Treatment: Cryotherapy Comments:: L ankle Interventions - Exercise/Activities/Manual Therapy Exercises/Activities: pt performed isometric DF, PF, Inversion, eversion, AP, ankle Alphabet Manual Therapy: n/a HOME EXERCISE PROGRAM: pt given written HEP including isometric DF, PF, inversion, eversion, AP, ankle alphabet - Charges Timed Code Treatment Minutes: 43 Total Treatment Time: 55 Procedures billed for this date of service:: chang tomas, ultrasound CP EVALUATION COMPLEXITY LEVEL EVALUATION COMPLEXITY LEVEL: HISTORY: Low, EXAM OF BODY SYSTEMS: Medium (pain, ROM, strength, edema), CLINICAL PRESENTATION: Low, CLINICAL DECISION MAKING: Low Assessment Assessment: pt presents with pain, edema L ankle. Also presents with decreased ROM, strength in L ankle due to L ankle sprain with fx of fibula. 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 Goal to be met by: 06/30/18 Goal #3: Improve strength L ankle strength 4 to 4+/5 Goal to be met by: 06/30/18 Goal #4: pt with no reports of pain L ankle Goal to be met by: 06/30/18 Plan - Treatment to be Provided Procedures: Therapeutic Exercises, Therapeutic Activity, Massage, Patient Education Modalities: Electrical Stimulation, Ultrasound/Phonophoresis, Cryotherapy, Hot Packs - Treatment Plan Frequency: 2 X week Duration: 4 weeks ORDER # VISITS AND/OR THROUGH DATE: 06/30/18 - Treatment Code (1) Left ankle pain Code(s): M25.572 - PAIN IN LEFT ANKLE AND JOINTS OF LEFT FOOT (2) Effusion, left ankle Code(s): M25.472 - EFFUSION, LEFT ANKLE (3) Left ankle tendonitis Code(s): M77.52 - OTHER ENTHESOPATHY OF LEFT FOOT (4) Left fibular fracture Code(s): S82.402A - UNSP FRACTURE OF SHAFT OF LEFT FIBULA, INIT FOR CLOS FX Qualifiers: Encounter type: initial encounter Fibula location: distal Fracture type: closed Fracture morphology: unspecified fracture morphology Qualified Code(s ): S82.832A - Other fracture of upper and lower end of left fibula, initial encounter for closed fracture
--- NOTE | 2018-06-09 14:33 | RS.OPPTDN ---
Subjective Date of Note: 06/09/18 Visit #: 2 Number of visits approved by Insurance: No authorixation required. Date of Evaluation: 06/02/18 Payer Source: Medicaid Treatment Diagnosis: sprain L ankle, L ankle tendonitis, Current Subjective/complaints:: Patient continues to report no pain with walking ,but it hurts more with foot flat on the floor.She reports she has been doing the exercises given to her by the PT, states ." I really want this ankle to get better.It feels so weak ." *Precautions: n/a Pain Assessment - Pain Description Pain Location: L ankle ,lateral aspect Pain Description: Sharp Pain Description: sharp at times when sitting ,but no pain with wa kng Other Comments regarding Pain:: dependent upon position of the foot,usually with the foot just resting flat on the floor - Treatment Modality: Ultrasound Parameters/Method Applied: 10 mins. pulsed 50 % @1.0 w/cm2 to lateral aspect of L ankle Patient Position: Sitting - Heat/Cryotherapy Treatment: Cryotherapy (10 mins. after) Interventions - Exercise/Activities/Manual Therapy Exercises/Activities: 3/15 reps of DF/PF,inversion/eversion. with yellow t- band.Ankle circles CW/CCW x 15 each Total minutes of Exercise: 20 Manual Therapy: n/a Total minutes of Manual Therapy: 0 HOME EXERCISE PROGRAM: pt given written HEP including isometric DF, PF, inversion, eversion, AP, ankle alphabet - Charges Timed Code Treatment Minutes: 30 Total Treatment Time: 40 Procedures billed for this date of service:: ex,US,cp Assessment: Patient reports lateral L ankle pain with doing active ankle circles and with inversion today as the everters are stretched from the recent spraining ( x 3 ) of the ankle.She ahs good strength in the everters/inverters with the foot in neutral position.She is very attentive and motivated to improve. Patient Education: Education of diagnosis, Body/Joint mechanics, Home Exercise Program, Home Safety, Activity Modification, Education of Plan of Care Patient demonstrates compliance with HEP?: Yes Short Term Goals Goal #1: ROM L ankle DF 12, PF 20 Goal to be met by: 06/16/18 Progress towards Goal:: Progressing Goal #2: decrease edema L ankle equal to R Goal to be met by: 06/16/18 Goal #3: Decrease pain L ankle <4/10 with activity Goal to be met by: 06/16/18 Progress towards Goal:: Progressing Goal #4: Independent with initial HEP Goal to be met by: 06/16/18 Progress towards Goal:: Progressing Business Analytics Faculty Member Goals Goal #1: ROM L ankle WFL's Goal to be met by: 06/30/18 Goal #2: pt able to tolerate normal activities with less pain. Goal to be met by: 06/30/18 Goal #3: Improve strength L ankle strength 4 to 4+/5 Goal to be met by: 06/30/18 Goal #4: pt with no reports of pain L ankle Goal to be met by: 06/30/18 Plan Dates of Intermediate Goals: 06/30/18 Expiration date of current Insurance Approval:: N/A PLAN: Cont.PT to strengthen the L ankle ,eliminate pain with activities.
--- NOTE | 2018-06-16 10:18 | RS.OPPTDN ---
Subjective Date of Note: 06/12/18 Visit #: 3 Number of visits approved by Insurance: No prior authorization required. Date of Evaluation: 06/02/18 Payer Source: Medicaid Treatment Diagnosis: sprain L ankle, L ankle tendonitis, *Precautions: n/a Interventions - Exercise/Activities/Manual Therapy Exercises/Activities: 3/15 reps of DF/PF,inversion/eversion. with yellow t- band.Ankle circles CW/CCW x 15 each Total minutes of Exercise: 20 Manual Therapy: n/a Total minutes of Manual Therapy: 0 HOME EXERCISE PROGRAM: pt given written HEP including isometric DF, PF, inversion, eversion, AP, ankle alphabet - Charges Timed Code Treatment Minutes: 30 Total Treatment Time: 50 Procedures billed for this date of service:: ex,US,cp Patient Education: Education of diagnosis, Body/Joint mechanics, Home Exercise Program, Home Safety, Activity Modification, Education of Plan of Care Patient demonstrates compliance with HEP?: Yes Short Term Goals Goal #1: ROM L ankle DF 12, PF 20 Goal to be met by: 06/16/18 Progress towards Goal:: Progressing Goal #2: decrease edema L ankle equal to R Goal to be met by: 06/16/18 Progress towards Goal:: Progressing Goal #3: Decrease pain L ankle <4/10 with activity Goal to be met by: 06/16/18 Progress towards Goal:: Progressing Goal #4: Independent with initial HEP Goal to be met by: 06/16/18 Progress towards Goal:: Progressing Image Assembler Goals Goal #1: ROM L ankle WFL's Goal to be met by: 06/30/18 Goal #2: pt able to tolerate normal activities with less pain. Goal to be met by: 06/30/18 Goal #3: Improve strength L ankle strength 4 to 4+/5 Goal to be met by: 06/30/18 Goal #4: pt with no reports of pain L ankle Goal to be met by: 06/30/18 Progress towards goal: Progressing Plan Dates of Image Assembler Goals: 06/30/18 Expiration date of current Insurance Approval:: 06/30/18 PLAN: Continue PT to reduce/eliminate L ankle pain ,and strengthen the ankle everters.
--- NOTE | 2018-06-16 11:14 | RS.OPPTDN ---
Subjective Date of Note: 06/16/18 Visit #: 4 Number of visits approved by Insurance: No auth. required. Date of Evaluation: 06/02/18 Payer Source: Medicaid Treatment Diagnosis: sprain L ankle, L ankle tendonitis, Current Subjective/complaints:: Reports the ankle feels slightly better today. *Precautions: n/a Pain Assessment - Pain Description Pain Location: L ankle Pain Description: minimal with foot resting on the floor. - Treatment Modality: Ultrasound Parameters/Method Applied: 10 mins. ,pulsed mode @ 1.5 w/cm2. - Heat/Cryotherapy Treatment: Cryotherapy (10 mins. after US and ex) Interventions - Exercise/Activities/Manual Therapy Exercises/Activities: 3/15 reps of DF/PF,inversion/eversion. with yellow t- band.Ankle circles CW/CCW x 15 each Total minutes of Exercise: 20 Manual Therapy: n/a Total minutes of Manual Therapy: 0 HOME EXERCISE PROGRAM: pt given written HEP including isometric DF, PF, inversion, eversion, AP, ankle alphabet - Charges Timed Code Treatment Minutes: 30 Total Treatment Time: 40 Procedures billed for this date of service:: ex ,US,cp Assessment: Increased strength in rthe L ankle ,with less pain present today.The ROM is WNL,has slight pain with inversion due to stretching the everters.she has normal gait ,no antalgis present. Patient Education: Education of diagnosis, Body/Joint mechanics, Home Exercise Program, Home Safety, Activity Modification, Education of Plan of Care Patient demonstrates compliance with HEP?: Yes Short Term Goals Goal #1: ROM L ankle DF 12, PF 20 Goal to be met by: 06/16/18 Progress towards Goal:: Partially Met Goal #2: decrease edema L ankle equal to R Goal to be met by: 06/16/18 Progress towards Goal:: Progressing Goal #3: Decrease pain L ankle <4/10 with activity Goal to be met by: 06/16/18 Progress towards Goal:: Partially Met Goal #4: Independent with initial HEP Goal to be met by: 06/16/18 Progress towards Goal:: Partially Met Skilled Nursing Goals Goal #1: ROM L ankle WFL's Goal to be met by: 06/30/18 Progress towards goal: Partially Met Goal #2: pt able to tolerate normal activities with less pain. Goal to be met by: 06/30/18 Progress towards goal: Progressing Goal #3: Improve strength L ankle strength 4 to 4+/5 Goal to be met by: 06/30/18 Progress towards goal: Progressing Goal #4: pt with no reports of pain L ankle Goal to be met by: 06/30/18 Progress towards goal: Partially Met Plan Dates of News Anchor Goals: 06/30/18 Expiration date of current Insurance Approval:: 06/30/18 PLAN: Cont.PT to eliminate ankle pain ,strengthen the everters of L ankle.
--- NOTE | 2018-06-20 11:37 | RS.CSNOTE ---
PT Case Note Date of Note: 06/20/18 Title of document: Patient Status Note: Patient treatment on hold today due to her spraining her ankle over the weekend ,has pain with walking ,wearing ankle boot for stability.Re-assessed by the supervising PT and she is contacting the regarding this incident. Number of visits approved by Insurance: No prior authorization required up to 24 visits. Expiration date of current Insurance Approval:: 06-30-18
--- NOTE | 2018-06-23 12:03 | RS.OPPTDN ---
Subjective Date of Note: 06/23/18 Visit #: 5 Number of visits approved by Insurance: No auth. required Date of Evaluation: 06/02/18 Payer Source: Medicaid Treatment Diagnosis: sprain L ankle, L ankle tendonitis, Current Subjective/complaints:: Patient reports the L ankle pain s intermittent ,but it does hurt with walking and at rest now.Hedy has occasional ' Shooting "pain up the payan area. *Precautions: n/a Pain Assessment - Pain Description Pain Location: L ankle Pain Description: Radiating, Dull, Aching Current Pain Intensity: 4 - Treatment Modality: Class 4 Laser Parameters/Method Applied: Acute ankle pain protocol , two 4 min. sessions. Treatment Area: L ankle Patient Position: Sitting - Heat/Cryotherapy Treatment: Cryotherapy (prior to ex and Laser) Interventions - Exercise/Activities/Manual Therapy Exercises/Activities: Gente passive ROM to L ankle all directions. Total minutes of Exercise: 20 Manual Therapy: n/a Total minutes of Manual Therapy: 0 HOME EXERCISE PROGRAM: pt given written HEP including isometric DF, PF, inversion, eversion, AP, ankle alphabet - Charges Timed Code Treatment Minutes: 20 Total Treatment Time: 43 Procedures billed for this date of service:: cp,ex,no charge for Laser today Assessment: Patient reports slight elevation with passive stretches ,occasional shooting pain in the anterior tib area.She has increased edema in the ankle/ foot.She is compliant to wearing the boot . Patient Education: Education of diagnosis, Body/Joint mechanics, Home Exercise Program, Home Safety, Activity Modification, Education of Plan of Care Patient demonstrates compliance with HEP?: Yes Short Term Goals Goal #1: ROM L ankle DF 12, PF 20 Goal to be met by: 06/16/18 Progress towards Goal:: Regressing Goal #2: decrease edema L ankle equal to R Goal to be met by: 06/16/18 Progress towards Goal:: Regressing Goal #3: Decrease pain L ankle <4/10 with activity Goal to be met by: 06/16/18 (4/10 today) Progress towards Goal:: Regressing Goal #4: Independent with initial HEP Goal to be met by: 06/16/18 Progress towards Goal:: Partially Met Deli Department Manager Goals Goal #1: ROM L ankle WFL's Goal to be met by: 06/30/18 Progress towards goal: Regressing Goal #2: pt able to tolerate normal activities with less pain. Goal to be met by: 06/30/18 Progress towards goal: Regressing Goal #3: Improve strength L ankle strength 4 to 4+/5 Goal to be met by: 06/30/18 Progress towards goal: No Change Goal #4: pt with no reports of pain L ankle Goal to be met by: 06/30/18 Progress towards goal: Regressing Plan Dates of Deli Department Manager Goals: 06/30/18 Expiration date of current Insurance Approval:: 06/30/18 PLAN: Continue PT to reduce edema eliminate pain ,and strengthen the L ankle.
--- NOTE | 2018-06-27 12:00 | RS.OPPTDN ---
Subjective Date of Note: 06/27/18 Visit #: 6 Number of visits approved by Insurance: no prior auth. required Date of Evaluation: 06/02/18 Payer Source: Medicaid Treatment Diagnosis: sprain L ankle, L ankle tendonitis, Current Subjective/complaints:: Patient reports temporary relief only,still has moderate pain in the L ankle when walking and at rest. *Precautions: n/a Pain Assessment - Pain Description Pain Location: L ankle Pain Description: Aching Current Pain Intensity: 5 - Treatment Modality: Ultrasound Parameters/Method Applied: 10 mins., 50 % pulsed mode to L ankle @ 1.5 w/cm2. - Heat/Cryotherapy Treatment: Cryotherapy Comments:: 15 mins.L ankle after US and ex. Interventions - Exercise/Activities/Manual Therapy Exercises/Activities: Gentle passive ROM to L ankle all directions. Total minutes of Exercise: 15 Manual Therapy: n/a Total minutes of Manual Therapy: 0 HOME EXERCISE PROGRAM: pt given written HEP including isometric DF, PF, inversion, eversion, AP, ankle alphabet - Charges Timed Code Treatment Minutes: 25 Total Treatment Time: 45 Procedures billed for this date of service:: US,ex,cp Assessment: Patient has temporary relief ,understands the exercses are to be done in pain free ROM ,then progress to theraband exercises as tolerated .She is aware of D/C plan today. Patient Education: Education of diagnosis, Body/Joint mechanics, Home Exercise Program, Home Safety, Activity Modification, Education of Plan of Care Patient demonstrates compliance with HEP?: Yes Short Term Goals Goal #1: ROM L ankle DF 12, PF 20 Goal to be met by: 06/16/18 Progress towards Goal:: No Change Goal #2: decrease edema L ankle equal to R Goal to be met by: 06/16/18 Progress towards Goal:: No Change Goal #3: Decrease pain L ankle <4/10 with activity Goal to be met by: 06/16/18 (5/10) Progress towards Goal:: Regressing Goal #4: Independent with initial HEP Goal to be met by: 06/16/18 Progress towards Goal:: Met Usp Goals Goal #1: ROM L ankle WFL's Goal to be met by: 06/30/18 Progress towards goal: No Change Goal #2: pt able to tolerate normal activities with less pain. Goal to be met by: 06/30/18 Progress towards goal: No Change Goal #3: Improve strength L ankle strength 4 to 4+/5 Goal to be met by: 06/30/18 Progress towards goal: No Change Goal #4: pt with no reports of pain L ankle Goal to be met by: 06/30/18 Progress towards goal: No Change Plan Dates of Usp Goals: 06/30/18 Expiration date of current Insurance Approval:: 06/30/18 PLAN: D/C due to temporary relief only.She has copies of HEP,good awareness of safety and joint protection.
--- NOTE | 2018-06-27 12:01 | RS.QUICKDC ---
Discharge from PT Date of Discharge: 06/27/18 Number of Visits: 6 Reason for Discharge: Temporary relief only ,see 06/27/18 daily note for details.
== END 2018-06-28 23:59 ==
PROVIDERS: ATTEND Orthopaedic Surgery
DX: S93.402A Sprain of unspecified ligament of left ankle, initial encounter (principal); M77.52 Other enthesopathy of left foot and ankle; M25.572 Pain in left ankle and joints of left foot; M25.472 Effusion, left ankle

== ENCOUNTER 2019-02-08 19:13 | Emergency (ER) ==
[2019-02-08 19:17] VITALS: BMI 54.3
[2019-02-08 19:23] VITALS: BP 114/67
--- NOTE | 2019-02-08 19:26 | ED.PDOC ---
General ED Provider: Dr. VETO MCMILLAN Chief Complaint: Ankle Pain/Injury Stated Complaint: Patient is a 23 year old female who comes to the ER after falling down one step. sustained injury and Swelling of left ankle with Superficial abrasions on right upper payan. Has pain with weight bearing. Took Tylenol this AM Time Seen by Physician: 19:15 Mode of Arrival: Wheelchair Information Source: Patient, Family Primary Care Provider: OLVIN CARROLL Nursing and Triage Documentation Reviewed and Agree: Yes Does patient meet sepsis criteria?: No System Inflammatory Response Syndrome: Pulse >90 BPM, Not Applicable (pulse due to pain ) Sepsis Protocol: For patient's 13 years and over: Temp is 96.8 and below OR 101 and greater Pulse >90 BPM Resp >20/minute Acutely Altered Mental Status Are patient's symptoms suggestive of a new infection, such as: -Pneumonia -Skin, Soft Tissue -Endocarditis -UTI -Bone, Joint Infection -Implantable Device -Acute Abdominal Infection -Wound Infection -Meningitis -Blood Stream Catheter Infection -Unknown Musculoskeletal Complaint Exam - Ankle/Foot Complaint/Exam Location of Injury: Reports: Left, Ankle Mechanism of Injury: Reports: Trauma (fall one step with twisting ) Onset/Duration: 1 hour ago Symptoms Are: Reports: Still present Onset of Pain: Reports: Immediate, Post accident Initial Severity: Severe Current Severity: Moderate Location: Reports: Diffuse Character: Reports: Aching, Throbbing Alleviating: Reports: Rest Aggravating: Reports: Movement, Weight bearing, Prolonged standing Able to Bear Weight: No Associated Signs and Symptoms: Reports: Swelling, Bruising Gout Risk Factors: Reports: None Lower Extremity Findings: Present: Swelling, Erythema, Tenderness Tenderness: Present: Medial malleolus Limited Range of Motion: Present: Inversion, Eversion, Dorsiflexion, Plantarflexion Ankle/Foot Picture: 1 - swelling and tenderness Differential Diagnosis: Contusion, Closed Fracture, Sprain, Strain Review of Systems - Review Of Systems Constitutional: Reports: Fever Ears, Nose, Mouth, Throat: Reports: No symptoms Respiratory: Reports: No symptoms Cardiac: Reports: No symptoms GI: Reports: No symptoms Musculoskeletal: Reports: Joint pain, Joint swelling Skin: Reports: Bruising (and abrasions ) Neurological: Reports: Anxiety Endocrine: Reports: No symptoms All Other Systems: Reviewed and Negative Past Medical History - Past Medical History Previously Healthy: No Endocrine: Reports: None Cardiovascular: Reports: None Respiratory: Reports: None Hematological: Reports: None Gastrointestinal: Reports: None Genitourinary: Reports: UTI Neuro/Psych: Reports: None Musculoskeletal: Reports: Other (3 bulging disks) Cancer: Reports: None Last Menstrual Period: current Other Pertinent Past Medical History: obesity, Pseudotumor cerebri - Surgical History General Surgical History: Reports: Tonsillectomy, Orthopedic (plates and screws right forearm and wrist post fall ) - Family History Family History: Reports: Diabetes (both parents) - Social History Smoking Status: Never smoker Hx Substance Use: No Alcohol Screening: None Physical Exam - Physical Exam Appearance: Obese Pain Distress: Severe Neck: Supple Respiratory: Airway patent, Breath sounds clear, Breath sounds equal, Respirations nonlabored Cardiovascular: RRR, Pulses normal, No rub, No murmur Musculoskeletal: Limited ROM Skin: Warm, Dry (multple skin abrassion on right knee and left payan.) Neurological: Alert Psychiatric: Anxious Interpretation - Radiology Interpretation Radiology Interpretation By: ED Physician Radiology Results: Negative (only soft tissue swelling) Exam Interpreted: Other (ankle ) Critical Care Note - Critical Care Note Total Time (mins): 0 Course - Course Orders, Labs, Meds: Orders Category Date Time Status NICHO [ED NICHO WRAP] .ONCE EMERGENCY 02/08/19 20:06 Active Ice [ED APPLY ICE AFFECTED AREA] .ONCE EMERGENCY 02/08/19 19:21 Active Splint [ED SPLINT APPLICATION] .ONCE EMERGENCY 02/08/19 20:05 Active Ketorolac Tromethamine [Toradol] MEDS 02/08/19 19:49 Discontinued 60 mg IM ONCE STA ANKLE, LEFT MIN 3 VIEWS Stat RADS 02/08/19 19:20 Completed Medications Discontinued Medications Generic Name Dose Route Start Last Admin Trade Name Freq PRN Reason Stop Dose Admin Ketorolac Tromethamine 60 mg 02/08/19 19:49 02/08/19 19:53 Toradol IM 02/08/19 19:50 60 mg ONCE STA Administration Vital Signs: Temp Pulse Resp BP Pulse Ox 02/08/19 20:02 97.6 F 76 98 02/08/19 19:23 114/67 06/13/19 19:14 100.3 F H 106 H 20 136/88 98 Departure - Departure Time of Disposition: 20:40 Disposition: HOME SELF-CARE Discharge Problem: Abrasion of skin Left ankle sprain Qualifiers: Encounter type: initial encounter Involved ligament of ankle: unspecified ligament Qualified Code(s): S93.402A - Sprain of unspecified ligament of left ankle, initial encounter Contusion of lower leg, left Qualifiers: Encounter type: initial encounter Qualified Code(s): S80.12XA - Contusion of left lower leg, initial encounter Contusion of lower leg, right Qualifiers: Encounter type: initial encounter Qualified Code(s): S80.11XA - Contusion of right lower leg, initial encounter Instructions: Ankle Sprain (ED), Contusion in Adults (ED), Abrasion (ED) Condition: Stable Pt referred to PMD for follow-up: Yes IPMP verified?: No Additional Instructions: Take Tramadol as needed for severe pain Keep foot elevated Use nicho wrap as needed Prescriptions: Tramadol HCl [Ultram] 50 mg PO Q6H PRN #14 tablet PRN Reason: Severe Pain Allergies/Adverse Reactions: Allergies No Known Allergies Allergy (Verified 02/08/19 19:17) Home Medications: Ambulatory Orders Medroxyprogesterone Acetate [Provera] 10 mg PO DAILY 01/26/19 Tramadol HCl [Ultram] 50 mg PO Q6H PRN #14 tablet 02/08/19 Disposition Discussed With: Patient, Family
[2019-02-08] MEDS ORDERED: TORADOL IM STA (19:49)
[2019-02-08 20:03] VITALS: TEMP 97.6
--- NOTE | 2019-02-08 20:24 | DI ---
EXAM: Three views of the left ankle HISTORY: Injury TECHNIQUE: AP lateral, oblique views of the left ankle were obtained. FINDINGS: No acute fractures are seen. The joint spaces are normal. There does appear to be latera l soft tissue swelling. IMPRESSION: Lateral soft tissue swelling without acute fracture dislocation seen within the left ank le.
== END 2019-02-08 20:18 | disposition home or self-care (01) ==
LOC: ED 19:13
DX: S93.402A Sprain of unspecified ligament of left ankle, initial encounter (principal); S80.12XA Contusion of left lower leg, initial encounter; S80.11XA Contusion of right lower leg, initial encounter; S80.811A Abrasion, right lower leg, initial encounter; S80.812A Abrasion, left lower leg, initial encounter; W10.9XXA Fall (on) (from) unspecified stairs and steps, initial encounter
CPT/HCPCS: 96372; 99282